=== PATIENT | male | born 1950 ===

== ENCOUNTER 2021-07-08 01:18 | Emergency (ER) | payer SELFPAY ==
[~2021-07-08] VITALS: Ht 172.7 cm; Wt 74.8 kg
--- NOTE | 2021-07-08 01:30 | NUR ---
pt bib ra for etoh, pt is able to state his name and where he is. Dr. Langley aware of pt in room 5.
--- NOTE | 2021-07-08 01:37 | NUR ---
placed pt on 3 liters nc as saturation is 90 percent, informed Dr. Langley.
[2021-07-08 01:45] LABS: HEMATOCRIT 50.2 % (36.7-47.1); MEAN CORPUSCULAR HEMOGLOBIN 31.7 uug (23.8-33.4); MEAN CORPUSCULAR VOLUME 95.2 fL (73.0-96.2); PLATELET COUNT (AUTO) 224 K/uL (152-348)
[2021-07-08 01:49] LABS: CREATININE 0.9 mg/dL (0.6-1.3); POTASSIUM 3.9 mmol/L (3.5-5.1)
[2021-07-08 01:54] LABS: BILIRUBIN,DIRECT 0.1 mg/dL (0.0-0.2); BILIRUBIN,TOTAL 0.4 mg/dL (0.2-1.0); TOTAL PROTEIN, SERUM 6.4 g/dL (6.4-8.2)
[2021-07-08] MEDS ORDERED: IV NS 1000 ML 1,000 ML IV ONE (02:15)
[2021-07-08] MEDS ORDERED: ONDANSETRON 4 MG/2 ML VIAL IV ONE (02:15)
[2021-07-08] MEDS ORDERED: KETAMINE HCL 500 MG/10 ML INJ IV ONE ×2 (02:15→05:30)
[2021-07-08] MEDS ORDERED: KETAMINE HCL 500 MG/10 ML INJ ONE ×2 (02:31→05:36)
[2021-07-08] MEDS ORDERED: ONDANSETRON 4 MG/2 ML VIAL ONE (02:31)
--- NOTE | 2021-07-08 02:32 | NUR ---
pt became agitated cussing at nurses and er md. pt given zofran and ketamine.
[2021-07-08 04:14] LABS: *AMPHETAMINE, URINE NEGATIVE (NEGATIVE); *CANNABINOID, URINE NEGATIVE (NEGATIVE); *COCCAINE, URINE POSITIVE (NEGATIVE); *OPIATE, URINE POSITIVE (NEGATIVE); *PHENCYCLIDINE SCREEN,URINE NEGATIVE (NEGATIVE)
--- NOTE | 2021-07-08 05:20 | NUR ---
pt refuses to keep spo2 on and refuses to keep his bp cuff on. Dr. Langley made aware. pt continues to lay prone or on a sidelying position versus supine despite telling him multiple times to lay supine to assist with his oxygention.
--- NOTE | 2021-07-08 05:25 | NUR ---
pt is combative, states he wants to leave the ER. Dr. Langley made aware and new orders received.
--- NOTE | 2021-07-08 06:17 | NUR ---
pt currently sleeping, spo2 98 percent.
--- NOTE | 2021-07-08 07:15 | NUR ---
Pt is easily arouasable, no c/o pain, room air O2 sat 93%.
--- NOTE | 2021-07-08 10:30 | NUR ---
Pt is awake A/O x4, walked to bathroom w/ steady gait. breakfast tray provided and ate moderatly.
--- NOTE | 2021-07-08 10:40 | NUR ---
IV removed. Catheter intact and site benign. Pressure and 4x4 gauze applied to site. No bleeding noted.
--- NOTE | 2021-07-08 10:43 | NUR ---
Patient discharged to home in stable condition. Written and verbal after care instructions given. Patient verbalizes understanding of instructions. Stressed follow up or return to ER for worsening s/s.
[2021-07-08 10:44] VITALS: BP 128/77
== END 2021-07-08 10:45 | disposition home or self-care (01) ==
LOC: ER 01:25
DX: F10.129 Alcohol abuse with intoxication, unspecified (principal); Y90.8 Blood alcohol level of 240 mg/100 ml or more; F14.10 Cocaine abuse, uncomplicated; D72.829 Elevated white blood cell count, unspecified
CPT/HCPCS: 36415; 80048; 80076; 80307; 80320; 82550; 85025; 96361; 96374; 96375; 96376; 99284; J2405; J3490 ×2; A4663; G0480